=== PATIENT | female | born 1930 | race African-American/Black ===

== ENCOUNTER → 2017-02-06 | Outpatient (CLI) | payer MEDICARE, BC ==
[2017-02-06 12:47] LABS: ALANINE AMINOTRANSFERASE 22 U/L (9-52); ALBUMIN 4.4 g/dL (3.5-5.0); ALKALINE PHOSPHATASE 35 U/L (38-126); ANION GAP 13 (5-19); ASPARTATE AMINO TRANSFERASE 18 U/L (14-36); BILIRUBIN,DIRECT 0.1 mg/dL (0.0-0.4); BILIRUBIN,TOTAL 0.3 mg/dL (0.2-1.3); BLOOD UREA NITROGEN 26 mg/dL (7-20); CALCIUM 9.9 mg/dL (8.4-10.2); CARBON DIOXIDE 24 mmol/L (22-30); CHLORIDE 106 mmol/L (98-107); GLUCOSE 112 mg/dL (75-110); SODIUM 143.4 mmol/L (137-145); URIC ACID 8.8 mg/dL (2.5-7.5)
[2017-02-06 12:52] LABS: POTASSIUM 6.6 mmol/L (3.6-5.0)
== END ==
LOC: OD 10:59
PROVIDERS: ATTEND Internal Medicine Geriatric Medicine
DX: M10.079 Idiopathic gout, unspecified ankle and foot (principal)
CPT/HCPCS: 36415; 80053; 84550

== ENCOUNTER → 2017-02-09 | Outpatient (CLI) | payer MEDICARE, BC ==
[2017-02-09 12:08] LABS: ANION GAP 16 (5-19); BLOOD UREA NITROGEN 27 mg/dL (7-20); CALCIUM 9.5 mg/dL (8.4-10.2); CARBON DIOXIDE 22 mmol/L (22-30); CHLORIDE 105 mmol/L (98-107); CREATININE RESULT 1.27 mg/dL (0.52-1.25); GLUCOSE 98 mg/dL (75-110); POTASSIUM 5.6 mmol/L (3.6-5.0); SODIUM 143.3 mmol/L (137-145)
== END ==
LOC: OD 09:19
PROVIDERS: ATTEND Internal Medicine Geriatric Medicine
DX: E87.5 Hyperkalemia (principal)
CPT/HCPCS: 36415; 80048

== ENCOUNTER 2017-02-28 14:19 | Inpatient (IN) | payer MEDICARE, BC ==
[2017-02-28] MEDS ORDERED: FUROSEMIDE INJ/PF 40 MG/4 ML SDV IV PRN (14:48)
[2017-02-28] MEDS ORDERED: LANSOPRAZOLE 30 MG TAB.RAP.DR PO ONE ×2 (15:00→18:30)
[2017-02-28] MEDS ORDERED: ALLOPURINOL 300 MG TABLET PO ONE ×2 (15:00→18:30)
[2017-02-28] MEDS ORDERED: ENOXAPARIN SODIUM INJ 30 MG/0.3 ML DISP.SYRIN SUBCUT ONE (15:00)
[2017-02-28 16:08] LABS: HEMATOCRIT 24.6 % (36.0-47.0); HEMOGLOBIN 8.2 g/dL (12.0-15.5); MEAN CORPUSCULAR HEMOGLOBIN 38.6 pg (27.0-33.4); MEAN CORPUSCULAR HGB CONC 33.2 g/dL (32.0-36.0); MEAN CORPUSCULAR VOLUME 116 fl (80-97); RED BLOOD COUNT 2.12 10^6/uL (3.72-5.28); RED CELL DISTRIBUTION WIDTH 28.8 % (11.5-14.0); WHITE BLOOD COUNT 10.3 10^3/uL (4.0-10.5)
[2017-02-28 16:23] LABS: PROTHROMBIN TIME 15.2 SEC (11.4-15.4)
[2017-02-28 16:24] LABS: PARTIAL THROMBOPLASTIN TIME 36.4 SEC (23.5-35.8)
[2017-02-28 16:31] LABS: ALANINE AMINOTRANSFERASE 19 U/L (9-52); ALBUMIN 3.7 g/dL (3.5-5.0); ALKALINE PHOSPHATASE 37 U/L (38-126); ANION GAP 9 (5-19); ASPARTATE AMINO TRANSFERASE 24 U/L (14-36); BILIRUBIN,DIRECT 0.4 mg/dL (0.0-0.4); BILIRUBIN,TOTAL 0.5 mg/dL (0.2-1.3); BLOOD UREA NITROGEN 20 mg/dL (7-20); CALCIUM 9.6 mg/dL (8.4-10.2); CARBON DIOXIDE 25 mmol/L (22-30); CHLORIDE 107 mmol/L (98-107); CREATININE RESULT 1.06 mg/dL (0.52-1.25); GLUCOSE 120 mg/dL (75-110); POTASSIUM 5.7 mmol/L (3.6-5.0); SODIUM 141.2 mmol/L (137-145); TOTAL PROTEIN 6.6 g/dL (6.3-8.2)
[2017-02-28 17:32] LABS: APPEARANCE,URINE SLIGHTLY-CLOUDY; BILIRUBIN,URINE NEGATIVE (NEGATIVE); GLUCOSE, URINE NEGATIVE (NEGATIVE); KETONES,URINE NEGATIVE (NEGATIVE); LEUKOCYTE ESTERASE,URINE TRACE (NEGATIVE); NITRITE,URINE POSITIVE (NEGATIVE); PROTEIN,URINE NEGATIVE (NEGATIVE); URINE SPECIFIC GRAVITY 1.012; UROBILINOGEN,URINE NEGATIVE mg/dL (<2.0)
[2017-02-28] MEDS ORDERED: ENOXAPARIN SODIUM INJ 40 MG/0.4 ML DISP.SYRIN SUBCUT ONE (19:00)
[2017-02-28] MEDS: CEFTRIAXONE 1 GM/D5W RTU 1 GM/50 ML RTUPB IV SCH (21:00)
[2017-02-28] MEDS ORDERED: ASPIRIN 325 MG TABLET, ENT COATED PO ONE (21:00)
--- NOTE | 2017-02-28 21:09 | PDOC H&P ---
History of Present Illness Admission Date/PCP: 02/28/17 14:19 VADIM SILVA MD Patient complains of: Bilateral leg swelling History of Present Illness: SUKI HOLLINS is a 86 year old female who presented to my office earlier today with complaint of bilateral leg swelling, left more than right. Her lower extremities Venous Doppler completed earlier today at this facility on outpatient, under directive of her payroll services analyst, Dr. Manuel, was reported negative. Patient was subsequently referred to my office for further evaluation. She reported compliant with diuretic therapy on Lasix. Recently she has significant hyperkalemia with need for Kayexalate and discontinuation of Spironolactone usage. She denied any excessive fluid or salt intake. She claiemd compliant with all other current medication management. She denied any SOB, palpitation, or chest pain. In view of her presentation she was advised hospitalization for possible acute on chronic CHF versus renal function decline. Past Medical History Cardiac Medical History: Reports: Hypertension - meds x yrs Denies: Coronary Artery Disease, Myocardial Infarction Pulmonary Medical History: Denies: Asthma, Bronchitis, Chronic Obstructive Pulmonary Disease (COPD), Pneumonia Neurological Medical History: Denies: Seizures Musculoskeltal Medical History: Denies: Arthritis Hematology: Reports: Anemia Past Surgical History Past Surgical History: Denies: Pacemaker Social History Smoking Status: Never Smoker Frequency of Alcohol Use: None Hx Recreational Drug Use: No Drugs: None Hx Prescription Drug Abuse: No Family History Family History: Reviewed & Not Pertinent Parental Family History Reviewed: Yes Children Family History Reviewed: Yes Sibling(s) Family History Reviewed.: Yes Medication/Allergy Home Medications: Carvedilol Phosphate [Coreg Cr] 10 mg PO DAILY 03/26/12 Furosemide [Lasix 20 mg Tablet] 20 mg PO QAM 03/26/12 Potassium Chloride [Klor-Con 10 Meq Tablet.sa] 10 meq PO DAILY 03/26/12 Spironolactone 25 mg PO DAILY 03/26/12 Valsartan [Diovan 160 mg Tablet] 160 mg PO DAILY 03/26/12 Oxycodone HCl/Acetaminophen [Percocet 5-325 mg Tablet] 1 tab PO Q4 PRN 03/30/12 Allergies/Adverse Reactions: No Known Allergies Allergy (Unverified 03/26/12 12:24) Review of Systems Constitutional: ABSENT: chills, fever(s), headache(s), weight gain, weight loss Eyes: ABSENT: visual disturbances Ears: ABSENT: hearing changes Nose, Mouth, and Throat: ABSENT: as per HPI, headache(s), mouth pain, sore throat, vertigo, other Cardiovascular: PRESENT: edema - bilateral left >> right Respiratory: ABSENT: cough, hemoptysis Gastrointestinal: ABSENT: abdominal pain, constipation, diarrhea, hematemesis, hematochezia, nausea, vomiting Genitourinary: ABSENT: dysuria, hematuria Musculoskeletal: PRESENT: joint swelling. ABSENT: as per HPI, back pain - lower extremities, deformity, muscle weakness, other Integumentary: ABSENT: rash, wounds Neurological: PRESENT: memory loss - at baseline with nieces assistance with care Psychiatric: ABSENT: anxiety, depression, homidical ideation, suicidal ideation Endocrine: ABSENT: cold intolerance, heat intolerance, polydipsia, polyuria Hematologic/Lymphatic: ABSENT: easy bleeding, easy bruising, lymphadenopathy Physical Exam Vital Signs: Temp Pulse Resp BP Pulse Ox 97 F L 62 14 112/50 L 66 L 02/28/17 15:12 02/28/17 15:18 02/28/17 15:12 02/28/17 15:12 02/28/17 15:12 Intake & Output 02/27/17 02/28/17 03/01/17 06:59 06:59 06:59 Intake Total 4 Output Total 400 Balance -396 Weight 69.7 kg General appearance: PRESENT: no acute distress, cooperative Head exam: PRESENT: atraumatic, normocephalic Eye exam: PRESENT: conjunctiva pink, EOMI, PERRLA. ABSENT: scleral icterus Ear exam: PRESENT: normal external ear exam Mouth exam: PRESENT: moist, tongue midline Teeth exam: ABSENT: dental caries, dental tenderness, edentulous, poor dentation , other Throat exam: ABSENT: post pharyngeal erythema, tonsillar erythema, tonsillar exudate, tonsillogmegaly, other Neck exam: PRESENT: full ROM. ABSENT: carotid bruit, JVD, lymphadenopathy, thyromegaly Respiratory exam: PRESENT: clear to auscultation dave Cardiovascular exam: PRESENT: systolic murmur - loudest around A2 and LLSB regions Murmur grade: 3 Vascular exam: PRESENT: normal capillary refill GI/Abdominal exam: PRESENT: normal bowel sounds, soft. ABSENT: distended, guarding, mass, organolmegaly, rebound, tenderness Rectal exam: PRESENT: deferred Extremities exam: PRESENT: pedal edema - bilateral, left >> right to knee level Musculoskeletal exam: PRESENT: deformity - related to multiple joints involvement with arthritis Neurological exam: PRESENT: alert, awake, oriented to person, oriented to place , oriented to time, oriented to situation, CN II-XII grossly intact. ABSENT: motor sensory deficit Psychiatric exam: PRESENT: appropriate affect, normal mood. ABSENT: homicidal ideation, suicidal ideation Skin exam: PRESENT: dry, intact, warm. ABSENT: cyanosis, rash Results Laboratory Results: 02/28/17 16:00 02/28/17 16:00 02/28/17 02/28/17 02/28/17 16:00 16:00 16:00 WBC 10.3 RBC 2.12 L Hgb 8.2 L Hct 24.6 L MCV 116 H MCH 38.6 H MCHC 33.2 RDW 28.8 H Plt Count 2749 H* Seg Neutrophils % Not Reportable Lymphocytes % Not Reportable Monocytes % Not Reportable Eosinophils % Not Reportable Basophils % Not Reportable Absolute Neutrophils Not Reportable Absolute Lymphocytes Not Reportable Absolute Monocytes Not Reportable Absolute Eosinophils Not Reportable Absolute Basophils Not Reportable Sodium 141.2 Potassium 5.7 H Chloride 107 Carbon Dioxide 25 Anion Gap 9 BUN 20 Creatinine Cancelled 1.06 Est GFR ( Amer) Cancelled 59 L Est GFR (Non-Af Amer) Cancelled 49 L Glucose 120 H Uric Acid 8.2 H Calcium 9.6 Total Bilirubin 0.5 AST 24 ALT 19 Alkaline Phosphatase 37 L Total Protein 6.6 Albumin 3.7 Urine Color Urine Appearance Urine pH Ur Specific [place] Urine Protein Urine Glucose (UA) Urine Ketones Urine Blood Urine Nitrite Ur Leukocyte Esterase Urine WBC (Auto) Urine RBC (Auto) 02/28/17 17:15 WBC RBC Hgb Hct MCV MCH MCHC RDW Plt Count Seg Neutrophils % Lymphocytes % Monocytes % Eosinophils % Basophils % Absolute Neutrophils Absolute Lymphocytes Absolute Monocytes Absolute Eosinophils Absolute Basophils Sodium Potassium Chloride Carbon Dioxide Anion Gap BUN Creatinine Est GFR ( Amer) Est GFR (Non-Af Amer) Glucose Uric Acid Calcium Total Bilirubin AST ALT Alkaline Phosphatase Total Protein Albumin Urine Color YELLOW Urine Appearance SLIGHTLY-CLOUDY Urine pH 5.0 Ur Specific [place] 1.012 Urine Protein NEGATIVE Urine Glucose (UA) NEGATIVE Urine Ketones NEGATIVE Urine Blood SMALL H Urine Nitrite POSITIVE H Ur Leukocyte Esterase TRACE H Urine WBC (Auto) 26 Urine RBC (Auto) 1 02/28/17 16:00 NT-Pro-B Natriuret Pep 673 H Assessment & Plan - Diagnosis (1) Essential thrombocytosis Is this a current diagnosis for this admission?: YesPlan: See admitting physician orders (2) Hyperkalemia Is this a current diagnosis for this admission?: YesPlan: See admitting physician orders (3) UTI (urinary tract infection) Qualifiers: Urinary tract infection type: site unspecified Hematuria presence: without hematuria Qualified Code(s): N39.0 - Urinary tract infection, site not specified Is this a current diagnosis for this admission?: YesPlan: See admitting physician orders (4) Elevated blood uric acid level Is this a current diagnosis for this admission?: YesPlan: See admitting physician orders (5) Acute on chronic diastolic CHF (congestive heart failure) Is this a current diagnosis for this admission?: YesPlan: See admitting physician orders - Time Time Spent: 50 to 70 Minutes Medications reviewed and adjusted accordingly: Yes Anticipated discharge: Home with Homehealth Within: Other - Inpatient Certification Medical Necessity: Need Close Monitoring Due to Risk of Patient Decompensation, Need For Continuous Telemetry Monitoring, Need for IV Antibiotics, Risk of Complication if Not Cared For in Hospital Post Hospital Care: D/C [employer] Documentation - Plan Summary Plan Summary: See admitting physician orders. Her thrombocytosis is currently being managed by Dr. Manuel, Oncologist/payroll services analyst. I will request consultation for continue management. Meanwhile I will start on Ecotrin 325 mg p.o daily as anti thrombotic therapy. She will remain on Lovenox for DVT prophylaxis. Her elevated uric acid level maybe secondary to myeloproliferative process. I will start on Allopurinol therapy. She will be started on IV Rocephin for probable UTI. We will follow up on Renal ultrasound and transthoracic echocardiogram evaluation. Overall prognosis remain guarded in view of her advance age and morbidities.
[2017-02-28 21:13] LABS: BASOPHILS % (MANUAL) 0 % (0-2); EOSINOPHILS % (MANUAL) 0 % (0-6); LYMPHOCYTES % (MANUAL) 16 % (13-45); NUCLEATED RED BLOOD CELLS 1 /100 WBC (0); TOTAL CELLS COUNTED 100
[2017-02-28 21:14] LABS: ANISOCYTOSIS 3+; HYPOCHROMASIA SLIGHT; OVALOCYTES SLIGHT; POIKILOCYTOSIS 1+; POLYCHROMASIA 1+; TARGET CELLS 1+; TEAR DROP CELLS SLIGHT
--- NOTE | 2017-02-28 22:05 | EKG REPORT ---
SEVERITY:- NORMAL ECG - SINUS RHYTHM : Confirmed by: Derrick Curry 28-Feb-2017 22:04:17
[2017-03-01 04:58] LABS: HEMATOCRIT 23.9 % (36.0-47.0); MEAN CORPUSCULAR HEMOGLOBIN 37.2 pg (27.0-33.4); MEAN CORPUSCULAR HGB CONC 32.7 g/dL (32.0-36.0); MEAN CORPUSCULAR VOLUME 114 fl (80-97); RED BLOOD COUNT 2.09 10^6/uL (3.72-5.28); RED CELL DISTRIBUTION WIDTH 27.5 % (11.5-14.0); WHITE BLOOD COUNT 11.5 10^3/uL (4.0-10.5)
[2017-03-01 05:42] LABS: HGB HCT DIFFERENCE -0.5
[2017-03-01 05:43] LABS: HEMOGLOBIN 7.8 g/dL (12.0-15.5)
[2017-03-01] MEDS: ENOXAPARIN SODIUM INJ 40 MG/0.4 ML DISP.SYRIN SUBCUT SCH (08:05)
--- NOTE | 2017-03-01 08:14 | PDOC CONSULTATION ---
Consultation Consult Date: 03/01/17 Attending physician:: VADIM SILVA Consult reason:: Asked by Dr. Silva to see pt well known to oncology clinic w / ET History of Present Illness Admission Date/PCP: 02/28/17 14:19 JAK DE LA FUENTE MD Patient complains of: Bilateral leg swelling History of Present Illness: 86-year-old female well known to our oncology clinic with history of stage I breast cancer now diagnosed and treated about 5 years ago. She's been doing well from that standpoint. However, she also was noted when I first saw her to have elevated platelet count. After further discussion with family, she was followed for what sounds like essential thrombocytosis for many years in [place], we weren't able to get any of those records. However we were able to confirm a JAK2 positive essential thrombocytosis. Since that time we have tried to keep her on Hydrea. We started her on Hydrea about 2 years ago but it is been very difficult to optimize the dose. Generally patients are on 1000 mg daily at least, up to 2000 mg a day, but when we have tried to push that dose, her hemoglobin is fallen down in the 7 range. Whenever does fall in the 7 range she becomes very weak, has increased leg swelling. However, she refuses transfusion. Once we back off Hydrea the hemoglobin improved to the 9-10 range but the platelets again go above 1.5 million. She has never had thrombotic episodes as of yet, when we saw her yesterday she had bilateral leg swelling, left greater than right, we did send her for bilateral lower extremity Dopplers and this was negative for DVT. She was admitted by Dr. Silva for the extreme leg swelling and weakness. Past Medical History Cardiac Medical History: Reports: Hypertension - meds x yrs Denies: Coronary Artery Disease, Myocardial Infarction Pulmonary Medical History: Denies: Asthma, Bronchitis, Chronic Obstructive Pulmonary Disease (COPD), Pneumonia Neurological Medical History: Denies: Seizures Malignancy Medical History: Reports: Breast Cancer Musculoskeltal Medical History: Denies: Arthritis Hematology: Reports: Anemia Hematology History Note: As above essential thrombocytosis JAK2 positive Past Surgical History Past Surgical History: Reports: Other - Breast surgery Denies: Pacemaker Social History Smoking Status: Never Smoker Frequency of Alcohol Use: None Hx Recreational Drug Use: No Drugs: None Hx Prescription Drug Abuse: No Family History Family History: Reviewed & Not Pertinent Parental Family History Reviewed: Yes Children Family History Reviewed: Yes Sibling(s) Family History Reviewed.: Yes Medication/Allergy Home Medications: Carvedilol Phosphate [Coreg Cr] 10 mg PO DAILY 03/26/12 Furosemide [Lasix 20 mg Tablet] 20 mg PO QAM 03/26/12 Potassium Chloride [Klor-Con 10 Meq Tablet.sa] 10 meq PO DAILY 03/26/12 Spironolactone 25 mg PO DAILY 03/26/12 Valsartan [Diovan 160 mg Tablet] 160 mg PO DAILY 03/26/12 Oxycodone HCl/Acetaminophen [Percocet 5-325 mg Tablet] 1 tab PO Q4 PRN 03/30/12 Allergies/Adverse Reactions: No Known Allergies Allergy (Unverified 03/26/12 12:24) Review of Systems Constitutional: ABSENT: chills, fever(s), headache(s), weight gain, weight loss Eyes: ABSENT: visual disturbances Ears: ABSENT: hearing changes Cardiovascular: ABSENT: chest pain, dyspnea on exertion, edema, orthropnea, palpitations Respiratory: ABSENT: cough, hemoptysis Gastrointestinal: ABSENT: abdominal pain, constipation, diarrhea, hematemesis, hematochezia, nausea, vomiting Genitourinary: ABSENT: dysuria, hematuria Musculoskeletal: ABSENT: joint swelling Integumentary: ABSENT: rash, wounds Neurological: ABSENT: abnormal gait, abnormal speech, confusion, dizziness, focal weakness, syncope Psychiatric: ABSENT: anxiety, depression, homidical ideation, suicidal ideation Endocrine: ABSENT: cold intolerance, heat intolerance, polydipsia, polyuria Hematologic/Lymphatic: ABSENT: easy bleeding, easy bruising Physical Exam Vital Signs: Temp Pulse Resp BP Pulse Ox 98.3 F 67 20 91/42 L 98 03/01/17 04:00 03/01/17 04:00 03/01/17 04:00 03/01/17 04:00 03/01/17 04:00 Intake & Output 02/28/17 03/01/17 03/02/17 06:59 06:59 06:59 Intake Total 374 Output Total 900 Balance -526 Weight 69.7 kg General appearance: PRESENT: no acute distress, well-developed, well-nourished Head exam: PRESENT: atraumatic, normocephalic Eye exam: PRESENT: conjunctiva pink, EOMI, PERRLA. ABSENT: scleral icterus Ear exam: PRESENT: normal external ear exam Mouth exam: PRESENT: moist, tongue midline Neck exam: ABSENT: carotid bruit, JVD, lymphadenopathy, thyromegaly Respiratory exam: PRESENT: clear to auscultation dave. ABSENT: rales, rhonchi, wheezes Cardiovascular exam: PRESENT: RRR. ABSENT: diastolic murmur, rubs, systolic murmur Pulses: PRESENT: normal dorsalis pedis pul Vascular exam: PRESENT: normal capillary refill GI/Abdominal exam: PRESENT: normal bowel sounds, soft. ABSENT: distended, guarding, mass, organolmegaly, rebound, tenderness Rectal exam: PRESENT: deferred Extremities exam: PRESENT: full ROM. ABSENT: calf tenderness, clubbing, pedal edema Neurological exam: PRESENT: alert, awake, oriented to person, oriented to place , oriented to time, oriented to situation, CN II-XII grossly intact. ABSENT: motor sensory deficit Psychiatric exam: PRESENT: appropriate affect, normal mood. ABSENT: homicidal ideation, suicidal ideation Skin exam: PRESENT: dry, intact, warm. ABSENT: cyanosis, rash Results Laboratory Results: 03/01/17 04:17 02/28/17 16:00 02/28/17 02/28/17 02/28/17 16:00 16:00 16:00 WBC 10.3 RBC 2.12 L Hgb 8.2 L Hct 24.6 L MCV 116 H MCH 38.6 H MCHC 33.2 RDW 28.8 H Plt Count 2749 H* Seg Neutrophils % Not Reportable Lymphocytes % Not Reportable Monocytes % Not Reportable Eosinophils % Not Reportable Basophils % Not Reportable Absolute Neutrophils Not Reportable Absolute Lymphocytes Not Reportable Absolute Monocytes Not Reportable Absolute Eosinophils Not Reportable Absolute Basophils Not Reportable Sodium 141.2 Potassium 5.7 H Chloride 107 Carbon Dioxide 25 Anion Gap 9 BUN 20 Creatinine Cancelled 1.06 Est GFR ( Amer) Cancelled 59 L Est GFR (Non-Af Amer) Cancelled 49 L Glucose 120 H Uric Acid 8.2 H Calcium 9.6 Total Bilirubin 0.5 AST 24 ALT 19 Alkaline Phosphatase 37 L Total Protein 6.6 Albumin 3.7 Urine Color Urine Appearance Urine pH Ur Specific [place] Urine Protein Urine Glucose (UA) Urine Ketones Urine Blood Urine Nitrite Ur Leukocyte Esterase Urine WBC (Auto) Urine RBC (Auto) 02/28/17 03/01/17 17:15 04:17 WBC 11.5 H RBC 2.09 L Hgb 7.8 L Hct 23.9 L MCV 114 H MCH 37.2 H MCHC 32.7 RDW 27.5 H Plt Count 2484 H* Seg Neutrophils % Lymphocytes % Monocytes % Eosinophils % Basophils % Absolute Neutrophils Absolute Lymphocytes Absolute Monocytes Absolute Eosinophils Absolute Basophils Sodium Potassium Chloride Carbon Dioxide Anion Gap BUN Creatinine Est GFR ( Amer) Est GFR (Non-Af Amer) Glucose Uric Acid Calcium Total Bilirubin AST ALT Alkaline Phosphatase Total Protein Albumin Urine Color YELLOW Urine Appearance SLIGHTLY-CLOUDY Urine pH 5.0 Ur Specific [place] 1.012 Urine Protein NEGATIVE Urine Glucose (UA) NEGATIVE Urine Ketones NEGATIVE Urine Blood SMALL H Urine Nitrite POSITIVE H Ur Leukocyte Esterase TRACE H Urine WBC (Auto) 26 Urine RBC (Auto) 1 02/28/17 16:00 NT-Pro-B Natriuret Pep 673 H Impressions: Renal Ultrasound 02/28/17 00:00 IMPRESSION: 1. A 2.1 cm indeterminate hypoechoic lesion of the right kidney ; differential diagnosis includes hemorrhagic cyst or other neoplasm. Consider further evaluation with dynamic contrast CT of the kidneys or 3 month surveillance ultrasound. 2. Chronic medical renal disease. Assessment & Plan - Diagnosis (1) Essential thrombocytosis Is this a current diagnosis for this admission?: YesPlan: Elevated platelet count, I do believe the Hydrea has caused her anemia and probably the leg swelling as well. Unfortunately, she cannot tolerate the Hydrea. I have placed a call to pharmacy to consider initiation of anagrelide. This would be a medication that would reduce only platelets and has minimal effect on hemoglobin. We have not used it because it is inferior to Hydrea. However, I don't think we have a choice now. Continue per primary physician on improving the leg swelling. We will follow closely. Agree with aspirin. - Time Time Spent: Greater than 70 Minutes Critical Time spent with patient: 35 or more minutes - Inpatient Certification Based on my medical assessment, after consideration of the patient's comorbidities, presenting symptoms, or acuity I expect that the services needed warrant INPATIENT care.: Yes I certify that my determination is in accordance with my understanding of Medicare's requirements for reasonable and necessary INPATIENT services [42 CFR 412.3e].: Yes Medical Necessity: Risk of Complication if Not Cared For in Hospital
[2017-03-01] MEDS: ALLOPURINOL 300 MG TABLET PO SCH (09:34)
[2017-03-01] MEDS: LANSOPRAZOLE 30 MG TAB.RAP.DR PO SCH (09:35)
[2017-03-01] MEDS: ASPIRIN 325 MG TABLET, ENT COATED PO SCH (09:35)
[2017-03-01] MEDS ORDERED: ENOXAPARIN SODIUM INJ 30 MG/0.3 ML DISP.SYRIN SUBCUT SCH (10:00)
[2017-03-01] MEDS ORDERED: LANSOPRAZOLE 30 MG TAB.RAP.DR PO SCH (10:00)
--- NOTE | 2017-03-01 12:15 | XCELERA REPORT ---
[address] [address] Transthoracic Echocardiogram Report Name: SUKI HOLLINS Age: 86 yrs Gender: Female : 1930 Patient Status: Inpatient Patient Location: [id number] Study Date: 03/01/2017 10:24 AM Height: 68 in Weight: 170 lb BSA: 1.9 m2 Procedure: A two-dimensional transthoracic echocardiogram with color flow and Doppler was performed. Study Quality: Technically suboptimal. Poor endocardial visualisation and poor dopler interogation. Reason For Study: CHF History: CHF. Ordering Physician: VADIM SILVA Performed By: Shelia Finch Interpretation Summary The left ventricle is normal in size. There is normal left ventricular wall thickness. LV EF is 65% Left ventricular systolic function is normal. Doppler measurements suggest impaired left ventricular relaxation, which is associated with grade I/IV or mild diastolic dysfunction Probably no regional wall motion abnormality , and no gross thrombus. The right ventricle is not well visualized secondary to technical limitations Right atrium not well visualized secondary to technical limitations The left atrial size is normal. There is no evidence of mitral valve prolapse. There is no vegetation seen on the mitral valve. There is no mitral valve stenosis. There is no mitral regurgitation noted. There is no aortic valve stenosis There is no LVOT obstruction. There is a mild amount of aortic regurgitation There is no tricuspid stenosis. TR interogation is poor.Probably mild TR.RVSP is 35 mmm of Hg , with RA mean of 5. There is no pericardial effusion. MMode/2D Measurements \T\ Calculations RVDd: 2.1 cm LVIDd: 3.5 cm FS: 37.8 % Ao root diam: 2.9 cm IVSd: 0.99 cm LVIDs: 2.2 cm EDV(Teich): 52.3 ml LVPWd: 0.98 cm ESV(Teich): 16.3 ml Ao root area: 6.6 cm2 EF(Teich): 68.9 % LA dimension: 3.2 cm Doppler Measurements \T\ Calculations MV E max mackenzie: MV P1/2t max mackenzie: Ao V2 max: AI max mackenzie: 92.8 cm/sec 92.8 cm/sec 171.6 cm/sec 381.6 cm/sec MV A max mackenzie: MV P1/2t: 77.8 msec Ao max PG: AI max P.2 cm/sec 11.8 mmHg 58.2 mmHg MV E/A: 0.90 MVA(P1/2t): 2.8 cm2 AI dec slope: MV dec slope: 349.5 cm/sec2 175.9 cm/sec2 AI P1/2t: 635.3 msec LV V1 max PG: PA V2 max: TR max mackenzie: 7.3 mmHg 68.6 cm/sec 271.5 cm/sec LV V1 max: PA max P.9 mmHg TR max P.8 cm/sec 29.5 mmHg Left Ventricle The left ventricle is normal in size. There is normal left ventricular wall thickness. LV EF is 65%. Left ventricular systolic function is normal. Doppler measurements suggest impaired left ventricular relaxation, which is associated with grade I/IV or mild diastolic dysfunction. Probably no regional wall motion abnormality , and no gross thrombus. Right Ventricle The right ventricle is not well visualized secondary to technical limitations. Atria Right atrium not well visualized secondary to technical limitations. The left atrial size is normal. Mitral Valve There is no evidence of mitral valve prolapse. There is no vegetation seen on the mitral valve. There is no mitral valve stenosis. There is no mitral regurgitation noted. Aortic Valve There is no aortic valve stenosis. There is no LVOT obstruction. There is a mild amount of aortic regurgitation. Tricuspid Valve There is no tricuspid stenosis. TR interogation is poor.Probably mild TR.RVSP is 35 mmm of Hg , with RA mean of 5. Pulmonic Valve There is no pulmonic valvular stenosis. There is no pulmonic valvular regurgitation. Great Vessels The aortic root is not well visualized but is probably normal size. Effusions There is no pericardial effusion. : VADIM SILVA > Farzaneh Tabor
[2017-03-01] MEDS ORDERED: FUROSEMIDE INJ/PF 40 MG/4 ML SDV IV PRN (13:50)
[2017-03-01] MEDS ORDERED: NORMAL SALINE 250 ML IV PRN ×2 (13:50)
--- NOTE | 2017-03-01 17:56 | PDOC PROGRESS REPORT ---
Subjective Progress Note for:: 03/01/17 Subjective:: No difficulty with breathing. No chest pain. No nausea or vomiting. Tolerating oral feeding. Her CBC continue to show significant thrombocytosis with declining hemoglobin at 7.8gm/dL. I had extensive discussion with patient during my bedside consultation and she is willing to get PRBC transfusion at this time. No fever or chills. Physical Exam Vital Signs: Temp Pulse Resp BP Pulse Ox 98.1 F 71 16 121/53 L 99 03/01/17 16:15 03/01/17 16:15 03/01/17 16:15 03/01/17 16:15 03/01/17 16:15 Intake & Output 02/28/17 03/01/17 03/02/17 06:59 06:59 06:59 Intake Total 374 688 Output Total 900 100 Balance -526 588 Weight 69.7 kg General appearance: PRESENT: no acute distress, cooperative Head exam: PRESENT: atraumatic, normocephalic Eye exam: PRESENT: conjunctiva pink, EOMI, PERRLA. ABSENT: scleral icterus Mouth exam: PRESENT: moist Respiratory exam: PRESENT: clear to auscultation dave Cardiovascular exam: PRESENT: RRR. ABSENT: diastolic murmur, rubs, systolic murmur Murmur grade: 3 GI/Abdominal exam: PRESENT: normal bowel sounds, soft. ABSENT: distended, guarding, mass, organolmegaly, rebound, tenderness Extremities exam: PRESENT: pedal edema - bilateral left > right Neurological exam: PRESENT: alert, awake, oriented to person, oriented to place , oriented to time, oriented to situation, CN II-XII grossly intact. ABSENT: motor sensory deficit Psychiatric exam: PRESENT: appropriate affect, normal mood. ABSENT: homicidal ideation, suicidal ideation Results Laboratory Results: 03/01/17 04:17 02/28/17 16:00 02/28/17 03/01/17 03/01/17 16:00 04: 14:00 WBC 10.3 11.5 H RBC 2.12 L 2.09 L Hgb 8.2 L 7.8 L Hct 24.6 L 23.9 L MCV 116 H 114 H MCH 38.6 H 37.2 H MCHC 33.2 32.7 RDW 28.8 H 27.5 H Plt Count 2749 H* 2484 H* Seg Neutrophils % Not Reportable Lymphocytes % Not Reportable Monocytes % Not Reportable Eosinophils % Not Reportable Basophils % Not Reportable Absolute Neutrophils Not Reportable Absolute Lymphocytes Not Reportable Absolute Monocytes Not Reportable Absolute Eosinophils Not Reportable Absolute Basophils Not Reportable Blood Type AB POSITIVE Antibody Screen NEGATIVE 02/28/17 16:00 NT-Pro-B Natriuret Pep 673 H Impressions: Renal Ultrasound 02/28/17 00:00 IMPRESSION: 1. A 2.1 cm indeterminate hypoechoic lesion of the right kidney ; differential diagnosis includes hemorrhagic cyst or other neoplasm. Consider further evaluation with dynamic contrast CT of the kidneys or 3 month surveillance ultrasound. 2. Chronic medical renal disease. Assessment & Plan - Diagnosis (1) Essential thrombocytosis Is this a current diagnosis for this admission?: Yes (2) Hyperkalemia Is this a current diagnosis for this admission?: YesPlan: We will repeat her BMP and address her hyperkalemia if trending upward. (3) UTI (urinary tract infection) Qualifiers: Urinary tract infection type: site unspecified Hematuria presence: without hematuria Qualified Code(s): N39.0 - Urinary tract infection, site not specified Is this a current diagnosis for this admission?: Yes (4) Elevated blood uric acid level Is this a current diagnosis for this admission?: Yes (5) Acute on chronic diastolic CHF (congestive heart failure) Is this a current diagnosis for this admission?: YesPlan: In view of her NT-Pro BNT this is less likely. I will follow up on her echocardiogram findings. Her chronic CHF do persist. (6) Anemia Qualifiers: Anemia type: unspecified type Qualified Code(s): D64.9 - Anemia, unspecified Is this a current diagnosis for this admission?: YesPlan: Patient will be transfused with 2 units PRBC. She will receive 40 mg of Lasix between 1st and 2nd unit of blood. - Time Time Spent with patient: 25-34 minutes Medications reviewed and adjusted accordingly: Yes Anticipated discharge: Home with Homehealth Within: Other - Inpatient Certification Based on my medical assessment, after consideration of the patient's comorbidities, presenting symptoms, or acuity I expect that the services needed warrant INPATIENT care.: Yes I certify that my determination is in accordance with my understanding of Medicare's requirements for reasonable and necessary INPATIENT services [42 CFR 412.3e].: Yes Medical Necessity: Need Close Monitoring Due to Risk of Patient Decompensation, Need For Continuous Telemetry Monitoring, Risk of Complication if Not Cared For in Hospital 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
[2017-03-01] MEDS: CARVEDILOL 3.125 MG TABLET PO SCH (21:02)
[2017-03-01] MEDS: CEFTRIAXONE 1 GM/D5W RTU 1 GM/50 ML RTUPB IV SCH (21:02)
[2017-03-01 21:10] LABS: ANION GAP 11 (5-19); BLOOD UREA NITROGEN 19 mg/dL (7-20); CALCIUM 9.7 mg/dL (8.4-10.2); CARBON DIOXIDE 24 mmol/L (22-30); CHLORIDE 105 mmol/L (98-107); GLUCOSE 130 mg/dL (75-110); POTASSIUM 5.8 mmol/L (3.6-5.0)
[2017-03-02 00:30] LABS: APPEARANCE,URINE CLEAR; BILIRUBIN,URINE NEGATIVE (NEGATIVE); GLUCOSE, URINE NEGATIVE (NEGATIVE); KETONES,URINE NEGATIVE (NEGATIVE); LEUKOCYTE ESTERASE,URINE NEGATIVE (NEGATIVE); NITRITE,URINE NEGATIVE (NEGATIVE); PROTEIN,URINE NEGATIVE (NEGATIVE); URINE SPECIFIC GRAVITY 1.004; UROBILINOGEN,URINE NEGATIVE mg/dL (<2.0)
--- NOTE | 2017-03-02 07:50 | PDOC PROGRESS REPORT ---
Subjective Progress Note for:: 03/02/17 Subjective:: No acute events overnight, have not heard yet from pharmacy whether we can get the drug anagrelide. If we cannot, we will start as outpt Physical Exam Vital Signs: Temp Pulse Resp BP Pulse Ox 98.2 F 68 18 109/45 L 99 03/02/17 06:50 03/02/17 07:00 03/02/17 06:50 03/02/17 06:50 03/02/17 06:50 Intake & Output 03/01/17 03/02/17 03/03/17 06:59 06:59 06:59 Intake Total 374 1248 Output Total 900 400 Balance -526 848 Weight 69.7 kg General appearance: PRESENT: no acute distress, well-developed, well-nourished Head exam: PRESENT: atraumatic, normocephalic Eye exam: PRESENT: conjunctiva pink, EOMI, PERRLA. ABSENT: scleral icterus Ear exam: PRESENT: normal external ear exam Mouth exam: PRESENT: moist, tongue midline Neck exam: ABSENT: carotid bruit, JVD, lymphadenopathy, thyromegaly Respiratory exam: PRESENT: clear to auscultation dave. ABSENT: rales, rhonchi, wheezes Cardiovascular exam: PRESENT: RRR. ABSENT: diastolic murmur, rubs, systolic murmur Pulses: PRESENT: normal dorsalis pedis pul Vascular exam: PRESENT: normal capillary refill GI/Abdominal exam: PRESENT: normal bowel sounds, soft. ABSENT: distended, guarding, mass, organolmegaly, rebound, tenderness Rectal exam: PRESENT: deferred Extremities exam: PRESENT: full ROM. ABSENT: calf tenderness, clubbing, pedal edema Neurological exam: PRESENT: alert, awake, oriented to person, oriented to place , oriented to time, oriented to situation, CN II-XII grossly intact. ABSENT: motor sensory deficit Psychiatric exam: PRESENT: appropriate affect, normal mood. ABSENT: homicidal ideation, suicidal ideation Skin exam: PRESENT: dry, intact, warm. ABSENT: cyanosis, rash Results Laboratory Results: 03/01/17 04:17 03/01/17 20:30 03/01/17 03/01/17 03/02/17 14:00 20:30 00:15 Sodium 140.0 Potassium 5.8 H Chloride 105 Carbon Dioxide 24 Anion Gap 11 BUN 19 Creatinine 1.20 Est GFR ( Amer) 52 L Est GFR (Non-Af Amer) 43 L Glucose 130 H Calcium 9.7 Urine Color COLORLESS Urine Appearance CLEAR Urine pH 5.0 Ur Specific [place] 1.004 Urine Protein NEGATIVE Urine Glucose (UA) NEGATIVE Urine Ketones NEGATIVE Urine Blood NEGATIVE Urine Nitrite NEGATIVE Ur Leukocyte Esterase NEGATIVE Urine RBC (Auto) 0 Blood Type AB POSITIVE Antibody Screen NEGATIVE 02/28/17 17:15 Clean Catch Midstream Urine Culture - Final Escherichia Coli 02/28/17 16:00 NT-Pro-B Natriuret Pep 673 H Impressions: Renal Ultrasound 02/28/17 00:00 IMPRESSION: 1. A 2.1 cm indeterminate hypoechoic lesion of the right kidney ; differential diagnosis includes hemorrhagic cyst or other neoplasm. Consider further evaluation with dynamic contrast CT of the kidneys or 3 month surveillance ultrasound. 2. Chronic medical renal disease. 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 Repeat CBC pending. Will improve off hydrea but will take several weeks. - Time Time Spent with patient: 15-24 minutes Critical Time spent with patient: 15-24 minutes - Inpatient Certification Based on my medical assessment, after consideration of the patient's comorbidities, presenting symptoms, or acuity I expect that the services needed warrant INPATIENT care.: Yes I certify that my determination is in accordance with my understanding of Medicare's requirements for reasonable and necessary INPATIENT services [42 CFR 412.3e].: Yes Medical Necessity: Failure to Improve With Outpatient Therapy, Risk of Complication if Not Cared For in Hospital
[2017-03-02] MEDS: ENOXAPARIN SODIUM INJ 40 MG/0.4 ML DISP.SYRIN SUBCUT SCH (08:28)
[2017-03-02 08:52] LABS: PATH REVIEW PATHOLOGIST REVIEWED
[2017-03-02] MEDS ORDERED: CARVEDILOL PHOSPHATE 10 MG PO SCH (10:00)
[2017-03-02] MEDS ORDERED: (PENDING PHARMACY ID) (Tamoxifen Citrate [Tamoxifen Citrate] 20 MG) PO SCH (10:00)
[2017-03-02] MEDS: ALLOPURINOL 300 MG TABLET PO SCH (10:11)
[2017-03-02] MEDS: ASPIRIN 325 MG TABLET, ENT COATED PO SCH (10:11)
[2017-03-02] MEDS: LANSOPRAZOLE 30 MG TAB.RAP.DR PO SCH (10:12)
[2017-03-02] MEDS: TAMOXIFEN CITRATE 10 MG TABLET PO SCH (10:12)
[2017-03-02] MEDS: CARVEDILOL 3.125 MG TABLET PO SCH ×2 (10:29→22:40)
--- NOTE | 2017-03-02 11:13 | Physician Advisory Note ---
Physician Advisor ProgressNote .: [facility], I have reviewed the medical record for this patient. Physician Advisor Statement: Possible documentation opportunities if attending agrees: 1. "anemia due to Hydrea tx, correctly prescribed & properly administered" 2. "elevated uric acid level, likely due to " 3. Please make it clear whether pt has chronic diastolic CHF without acute exac , vs acute on chronic diastolic CHF, once this is clarified by eval. As always, if concerned about any unstable VS or abnormal labs, please comment on them & note what doing about them, & please document each day the potential clinical problems you are concerned could occur if pt not kept in hospital for tx at this time. Thanks for your help with documentation accuracy/specificity improvement! Ya Soria MD [facility] Physician Advisor, Fellow of Hospital Medicine
--- NOTE | 2017-03-02 13:24 | PDOC PROGRESS REPORT ---
Subjective Progress Note for:: 03/02/17 Subjective:: Patient is post 2 units of PRBC transfusion. No difficulty with breathing. No chest pain. No abdominal pain, nausea or vomiting. Tolerating oral feeding. No fever or chills. Physical Exam Vital Signs: Temp Pulse Resp BP Pulse Ox 98.4 F 71 18 105/59 L 100 03/02/17 11:31 03/02/17 11:31 03/02/17 11:31 03/02/17 11:31 03/02/17 11:31 Intake & Output 03/01/17 03/02/17 03/03/17 06:59 06:59 06:59 Intake Total 374 1248 Output Total 900 400 Balance -526 848 Weight 69.7 kg Physical Exam: General appearance: PRESENT: no acute distress, cooperative Head exam: PRESENT: atraumatic, normocephalic Eye exam: PRESENT: conjunctiva pink, EOMI, PERRLA. ABSENT: scleral icterus Mouth exam: PRESENT: moist Respiratory exam: PRESENT: clear to auscultation dave Cardiovascular exam: PRESENT: RRR. ABSENT: diastolic murmur, rubs, systolic murmur Murmur grade: 3 GI/Abdominal exam: PRESENT: normal bowel sounds, soft. ABSENT: distended, guarding, mass, organomegaly, rebound, tenderness Extremities exam: PRESENT: pedal edema - bilateral left > right Neurological exam: PRESENT: alert, awake, oriented to person, oriented to place , oriented to time, oriented to situation, CN II-XII grossly intact. ABSENT: motor sensory deficit Psychiatric exam: PRESENT: appropriate affect, normal mood. ABSENT: homicidal ideation, suicidal ideation Murmur grade: 3 Results Laboratory Results: 03/01/17 04:17 03/01/17 20:30 02/28/17 03/01/17 03/01/17 16:00 14:00 20:30 WBC 10.3 RBC 2.12 L Hgb 8.2 L Hct 24.6 L MCV 116 H MCH 38.6 H MCHC 33.2 RDW 28.8 H Plt Count 2749 H* Sodium 140.0 Potassium 5.8 H Chloride 105 Carbon Dioxide 24 Anion Gap 11 BUN 19 Creatinine 1.20 Est GFR ( Amer) 52 L Est GFR (Non-Af Amer) 43 L Glucose 130 H Calcium 9.7 Urine Color Urine Appearance Urine pH Ur Specific [place] Urine Protein Urine Glucose (UA) Urine Ketones Urine Blood Urine Nitrite Ur Leukocyte Esterase Urine RBC (Auto) Blood Type AB POSITIVE Antibody Screen NEGATIVE 03/02/17 00:15 WBC RBC Hgb Hct MCV MCH MCHC RDW Plt Count Sodium Potassium Chloride Carbon Dioxide Anion Gap BUN Creatinine Est GFR ( Amer) Est GFR (Non-Af Amer) Glucose Calcium Urine Color COLORLESS Urine Appearance CLEAR Urine pH 5.0 Ur Specific [place] 1.004 Urine Protein NEGATIVE Urine Glucose (UA) NEGATIVE Urine Ketones NEGATIVE Urine Blood NEGATIVE Urine Nitrite NEGATIVE Ur Leukocyte Esterase NEGATIVE Urine RBC (Auto) 0 Blood Type Antibody Screen 02/28/17 17:15 Clean Catch Midstream Urine Culture - Final Escherichia Coli 02/28/17 16:00 NT-Pro-B Natriuret Pep 673 H Impressions: Renal Ultrasound 02/28/17 00:00 IMPRESSION: 1. A 2.1 cm indeterminate hypoechoic lesion of the right kidney ; differential diagnosis includes hemorrhagic cyst or other neoplasm. Consider further evaluation with dynamic contrast CT of the kidneys or 3 month surveillance ultrasound. 2. Chronic medical renal disease. Assessment & Plan - Diagnosis (1) Essential thrombocytosis Is this a current diagnosis for this admission?: YesPlan: See admitting physician orders. Awaiting Anagrelide as recommended by Dr. Manuel , sap ppm consultant/oncologist. If this medication cannot be made available in the next 24 hours I will discharge patient home tomorrow. (2) Hyperkalemia Is this a current diagnosis for this admission?: Yes (3) UTI (urinary tract infection) Qualifiers: Urinary tract infection type: site unspecified Hematuria presence: without hematuria Qualified Code(s): N39.0 - Urinary tract infection, site not specified Is this a current diagnosis for this admission?: YesPlan: See admitting physician orders. urine culture did grew E. coli with colonies > 100,000 and sensitive to Rocephin. (4) Elevated blood uric acid level Is this a current diagnosis for this admission?: YesPlan: See admitting physician orders. Most likely due to myeloproliferative process. 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 (6) Chronic diastolic CHF (congestive heart failure) Is this a current diagnosis for this admission?: YesPlan: Her echocardiogram and NT-Pro BNP did not support acute CHF. She did demonstrate 1/ or mild diastolic dysfunction on her echocardiogram. 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
[2017-03-02] MEDS: CEFTRIAXONE 1 GM/D5W RTU 1 GM/50 ML RTUPB IV SCH (22:40)
[2017-03-03 05:04] LABS: HEMATOCRIT 30.8 % (36.0-47.0); HGB HCT DIFFERENCE -0.2; MEAN CORPUSCULAR HEMOGLOBIN 33.6 pg (27.0-33.4); RED BLOOD COUNT 3.03 10^6/uL (3.72-5.28); RED CELL DISTRIBUTION WIDTH 32.9 % (11.5-14.0); WHITE BLOOD COUNT 11.1 10^3/uL (4.0-10.5)
[2017-03-03 05:29] LABS: MEAN CORPUSCULAR VOLUME 102 fl (80-97)
[2017-03-03 05:30] LABS: HEMOGLOBIN 10.2 g/dL (12.0-15.5)
--- NOTE | 2017-03-03 07:50 | PDOC PROGRESS REPORT ---
Subjective Progress Note for:: 03/03/17 Subjective:: No acute events overnight. I discussed case with pharmacy, the medication is very expensive than they would recommend starting it as an outpatient. I agree because inpatient treatment for just a few days will not really make a difference. We will start this medication as an outpatient next week. From a hematologic standpoint, it is reasonable to discharge her home. Continue aspirin. Would not continue any other anticoagulant. Physical Exam Vital Signs: Temp Pulse Resp BP Pulse Ox 98.6 F 64 18 99/72 L 98 03/03/17 00:43 03/03/17 07:00 03/03/17 00:43 03/03/17 00:43 03/03/17 00:43 Intake & Output 03/02/17 03/03/17 03/04/17 06:59 06:59 06:59 Intake Total 1248 1110 Output Total 400 350 Balance 848 760 General appearance: PRESENT: no acute distress, well-developed, well-nourished Head exam: PRESENT: atraumatic, normocephalic Eye exam: PRESENT: conjunctiva pink, EOMI, PERRLA. ABSENT: scleral icterus Ear exam: PRESENT: normal external ear exam Mouth exam: PRESENT: moist, tongue midline Neck exam: ABSENT: carotid bruit, JVD, lymphadenopathy, thyromegaly Respiratory exam: PRESENT: clear to auscultation dave. ABSENT: rales, rhonchi, wheezes Cardiovascular exam: PRESENT: RRR. ABSENT: diastolic murmur, rubs, systolic murmur Pulses: PRESENT: normal dorsalis pedis pul Vascular exam: PRESENT: normal capillary refill GI/Abdominal exam: PRESENT: normal bowel sounds, soft. ABSENT: distended, guarding, mass, organolmegaly, rebound, tenderness Rectal exam: PRESENT: deferred Extremities exam: PRESENT: full ROM. ABSENT: calf tenderness, clubbing, pedal edema Neurological exam: PRESENT: alert, awake, oriented to person, oriented to place , oriented to time, oriented to situation, CN II-XII grossly intact. ABSENT: motor sensory deficit Psychiatric exam: PRESENT: appropriate affect, normal mood. ABSENT: homicidal ideation, suicidal ideation Skin exam: PRESENT: dry, intact, warm. ABSENT: cyanosis, rash Results Laboratory Results: 03/03/17 04:07 03/01/17 20:30 02/28/17 03/01/17 03/03/17 16:00 14:00 04:07 WBC 10.3 11.1 H RBC 2.12 L 3.03 L Hgb 8.2 L 10.2 L D Hct 24.6 L 30.8 L MCV 116 H 102 H D MCH 38.6 H 33.6 H MCHC 33.2 33.0 RDW 28.8 H 32.9 H Plt Count 2749 H* 2172 H* Blood Type AB POSITIVE Antibody Screen NEGATIVE 02/28/17 17:15 Clean Catch Midstream Urine Culture - Final Escherichia Coli 02/28/17 16:00 NT-Pro-B Natriuret Pep 673 H Impressions: Renal Ultrasound 02/28/17 00:00 IMPRESSION: 1. A 2.1 cm indeterminate hypoechoic lesion of the right kidney ; differential diagnosis includes hemorrhagic cyst or other neoplasm. Consider further evaluation with dynamic contrast CT of the kidneys or 3 month surveillance ultrasound. 2. Chronic medical renal disease. Assessment & Plan - Diagnosis (1) Essential thrombocytosis Is this a current diagnosis for this admission?: YesPlan: Treatment to be started as an outpatient, we have made arrangements for follow- up next week. 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 - Time Time Spent with patient: 15-24 minutes Critical Time spent with patient: 15-24 minutes Anticipated discharge: Home Within: within 24 hours
[2017-03-03] MEDS: ENOXAPARIN SODIUM INJ 40 MG/0.4 ML DISP.SYRIN SUBCUT SCH (08:06)
[2017-03-03] MEDS: TAMOXIFEN CITRATE 10 MG TABLET PO SCH (10:40)
[2017-03-03] MEDS: ASPIRIN 325 MG TABLET, ENT COATED PO SCH (10:41)
[2017-03-03] MEDS: LANSOPRAZOLE 30 MG TAB.RAP.DR PO SCH (10:41)
[2017-03-03] MEDS: ALLOPURINOL 300 MG TABLET PO SCH (10:41)
[2017-03-03] MEDS: CARVEDILOL 3.125 MG TABLET PO SCH (10:41)
[2017-03-03 12:01] VITALS: BP 116/53
--- NOTE | 2017-03-03 14:47 | PDOC DISCHARGE SUMMARY ---
General - Admit/Disc Date/PCP Admission Date/Primary Care Provider: 02/28/17 14:19 JAK DE LA FUENTE MD Discharge Date: 03/03/17 - Discharge Diagnosis (1) Essential thrombocytosis Is this a current diagnosis for this admission?: Yes (2) Hyperkalemia Is this a current diagnosis for this admission?: Yes (3) UTI (urinary tract infection) Is this a current diagnosis for this admission?: Yes (4) Elevated blood uric acid level Is this a current diagnosis for this admission?: Yes (5) Anemia Is this a current diagnosis for this admission?: Yes (6) Chronic diastolic CHF (congestive heart failure) Is this a current diagnosis for this admission?: Yes - Additional Information Discharge Activity: Activity As Tolerated, Balance Activity w/Rest, Keep Legs Elevated, Slowly Increase Activity, Weigh Daily Home Medications: Aspirin [Aspirin 81 mg Chewable Tablet] 81 mg PO DAILY 03/01/17 Carvedilol Phosphate [Coreg CR 10 mg Ext. Release Capsule] 10 mg PO DAILY Ergocalciferol (Vitamin D2) [Vitamin D] 0 units PO .CLARIFY 03/01/17 Furosemide [Lasix] 20 mg PO DAILY 03/01/17 Tamoxifen Citrate 20 mg PO DAILY 03/01/17 Valsartan [Diovan 80 mg Tablet] 80 mg PO DAILY 03/01/17 History of Present Illness History of Present Illness: SUKI HOLLINS is a 86 year old female who presented to my office earlier today with complaint of bilateral leg swelling, left more than right. Her lower extremities Venous Doppler completed earlier today at this facility on outpatient, under directive of her event lighting specialist, Dr. De La Fuente, was reported negative. Patient was subsequently referred to my office for further evaluation. She reported compliant with diuretic therapy on Lasix. Recently she has significant hyperkalemia with need for Kayexalate and discontinuation of Spironolactone usage. She denied any excessive fluid or salt intake. She claimed compliant with all other current medication management. She denied any SOB, palpitation, or chest pain. In view of her presentation she was advised hospitalization for possible acute on chronic CHF versus renal function decline. Hospital Course Hospital Course: Patient's leg swelling did show some improvement but probably related to positional benefit. She denied any chest pain or SOB. Her CBC did revealed significant anemia that is probably due to her myeloproliferative disease process. She was transfused 2 units of PRBC during this hospitalization due to development of significant anemia. She was seen by Dr. De La Fuente, hematology- oncologist for essential thrombocytosis. she has been refractory to hydrea due to development of anemia with usage. Attempt was made to use anagrelide but not available during this hospitalization. Patient will start the mediation on outpatient. Physical Exam Vital Signs: Temp Pulse Resp BP Pulse Ox 98.4 F 66 20 116/53 L 100 03/03/17 11:31 03/03/17 11:31 03/03/17 11:31 03/03/17 11:31 03/03/17 11:31 Intake & Output 03/02/17 03/03/17 03/04/17 06:59 06:59 06:59 Intake Total 1248 1110 Output Total 400 350 Balance 848 760 Physical Exam: General appearance: PRESENT: no acute distress, cooperative Head exam: PRESENT: atraumatic, normocephalic Eye exam: PRESENT: conjunctiva pink, EOMI, PERRLA. ABSENT: scleral icterus Mouth exam: PRESENT: moist Respiratory exam: PRESENT: clear to auscultation dave Cardiovascular exam: PRESENT: RRR. ABSENT: diastolic murmur, rubs, systolic murmur Murmur grade: 3 GI/Abdominal exam: PRESENT: normal bowel sounds, soft. ABSENT: distended, guarding, mass, organomegaly, rebound, tenderness Extremities exam: PRESENT: pedal edema - bilateral left > right Neurological exam: PRESENT: alert, awake, oriented to person, oriented to place , oriented to time, oriented to situation, CN II-XII grossly intact. ABSENT: motor sensory deficit Psychiatric exam: PRESENT: appropriate affect, normal mood. ABSENT: homicidal ideation, suicidal ideation Murmur grade: 3 Results Laboratory Results: 03/03/17 04:07 03/01/17 20:30 03/01/17 03/03/17 14:00 04:07 WBC 11.1 H RBC 3.03 L Hgb 10.2 L D Hct 30.8 L MCV 102 H D MCH 33.6 H MCHC 33.0 RDW 32.9 H Plt Count 2172 H* Blood Type AB POSITIVE Antibody Screen NEGATIVE 02/28/17 16:00 NT-Pro-B Natriuret Pep 673 H Impressions: Renal Ultrasound 02/28/17 00:00 IMPRESSION: 1. A 2.1 cm indeterminate hypoechoic lesion of the right kidney ; differential diagnosis includes hemorrhagic cyst or other neoplasm. Consider further evaluation with dynamic contrast CT of the kidneys or 3 month surveillance ultrasound. 2. Chronic medical renal disease. Qualifiers PATEINT BEING DISCHARGED WITH ANY OF THE FOLLOWING DIAGNOSIS?: No VTE patient discharged on overlapping Therapy?: Yes Reason(s) for not prescribing Overlap Therapy:: Not indicated Plan Discharge Plan: Discharge home today. Follow up in the office as instructed upon discharge.
== END 2017-03-03 19:51 | disposition home health service (06) | DRG 815 ==
LOC: 4N 14:19
PROVIDERS: ADMIT Internal Medicine Geriatric Medicine; ATTEND Internal Medicine Geriatric Medicine
PROC: 30233N1 Transfusion of Nonautologous Red Blood Cells into Peripheral Vein, Percutaneous Approach (ICD-10-PCS; principal; 2017-03-01)
DX: D47.3 Essential (hemorrhagic) thrombocythemia (principal); N39.0 Urinary tract infection, site not specified; I50.32 Chronic diastolic (congestive) heart failure; D64.81 Anemia due to antineoplastic chemotherapy; T45.1X5A Adverse effect of antineoplastic and immunosuppressive drugs, initial encounter; E87.5 Hyperkalemia; I11.0 Hypertensive heart disease with heart failure; E79.0 Hyperuricemia without signs of inflammatory arthritis and tophaceous disease; B96.20 Unspecified Escherichia coli [E. coli] as the cause of diseases classified elsewhere; Y92.019 Unspecified place in single-family (private) house as the place of occurrence of the external cause; Z85.3 Personal history of malignant neoplasm of breast
CPT/HCPCS: 36415; 36430; 76770; 80048; 80053; 81001; 83880; 84550; 85025; 85027; 85610; 85730; 86850; 86900; 86901; 86920; 87086; 87088; 87186; 93005; 93010; 93306; J0696; J1650; J1940; J3490; P9016

== ENCOUNTER → 2017-02-28 | Outpatient (CLI) | payer MEDICARE, BC | LOC: SP 11:18 | PROVIDERS: ATTEND Internal Medicine | DX: M79.609 Pain in unspecified limb (principal); M79.89 Other specified soft tissue disorders | CPT/HCPCS: 93970 ==

== ENCOUNTER → 2017-06-12 | Outpatient (CLI) | payer MEDICARE, BC ==
[2017-06-12 13:36] LABS: ANION GAP 12 (5-19); BLOOD UREA NITROGEN 25 mg/dL (7-20); CALCIUM 9.6 mg/dL (8.4-10.2); CARBON DIOXIDE 22 mmol/L (22-30); CHLORIDE 110 mmol/L (98-107); CREATININE RESULT 1.17 mg/dL (0.52-1.25); GLUCOSE 104 mg/dL (75-110); POTASSIUM 5.1 mmol/L (3.6-5.0); SODIUM 143.5 mmol/L (137-145)
== END ==
LOC: OD 11:50
PROVIDERS: ATTEND Internal Medicine Geriatric Medicine
DX: I10 Essential (primary) hypertension (principal); M1A.00X0 Idiopathic chronic gout, unspecified site, without tophus (tophi)
CPT/HCPCS: 36415; 80048; 84550

== ENCOUNTER → 2019-02-15 | Outpatient (CLI) | payer MEDICARE, BC | LOC: OD 10:51 | PROVIDERS: ATTEND Internal Medicine Geriatric Medicine | DX: M1A.00X0 Idiopathic chronic gout, unspecified site, without tophus (tophi) (principal); E55.9 Vitamin D deficiency, unspecified | CPT/HCPCS: 36415; 82306; 84550 ==